=== PATIENT | female | born 1955 | race Caucasian/White ===

== ENCOUNTER 2021-04-09 13:30 | Outpatient (RCR) | payer OTHER, SELFPAY ==
--- NOTE | 2021-03-26 14:19 | OTOPEVAL ---
OCCUPATIONAL THERAPY INITIAL EVALUATION REPORT 03/26/21 Thank you for referring Bree Mccord to [facility].? The patient is scheduled to be seen for therapy? 1-2x/week for 4 weeks. Please review, sign, date and return this plan of care MAC. I agree with and certify that the following plan of care is medically necessary. Referring Physician Date Referring Provider: Yajaira Christopher NP *OT Outpatient Evaluation Start: 03/26/21 12:52 Evaluation Information Problem Diagnosis h/o brain tumor Additional Evaluation Detail Deficits following tumor resection include: Left side weakness, left side proprioception issues, left visual field cut Apr 17, 2020: tumor resection Subjective Information Patient reports that she lives Query Text:As Reported By Patient/ at home with her who Family has been doing all the cooking and laundry. Her granddaughter helps with transportation and household tasks as needed. She states that she showered and dressed herself today, but does note, it wasn't easy . Reports she is unable to type, do word searches, and sometimes runs into furniture on her left side. She states she rarely leaves the home, but when she does someone is always with her to help her down the 4 steps. Prior Level of Function Home Setting Home Type House Environmental Barriers Stairs, 2-4 Living Situation With Spouse Support Available Local Family Support Bathroom Environment Shower, Curtain Bathing Equipment Tub Seat With Back Comments Additional Prior Level of Function Patient states the kitchen is Comments a dangerous place for me , stating that she has burned herself multiple times. She reports she can make herself coffee and something light. She is also now unable to do the laundry because she cannot do the steps down to the basement. Pain Assessment Timing of Pain Assessment Timing of Pain Assessment Assessment Self Report Self Report Pain Level 0 Pain Score
--- NOTE | 2021-03-30 13:42 | PTOPEVAL ---
PHYSICAL THERAPY EVALUATION AND PLAN OF CARE Thank you for referring Bree Mccord to [facility].? The patient is scheduled to be seen for therapy? 2x/week for 4 weeks. Please review, sign, date and return this plan of care MAC. I agree with and certify that the following plan of care is medically necessary. Referring Physician Date Evaluation Diagnosis h/o brain tumor Additional Evaluation Detail Deficits following tumor resection include: Left side weakness, left side proprioception issues, left visual field cut Apr 17, 2020: tumor resection Subjective Information Typically walks with a walker Query Text:As Reported By Patient/ or a cane. Has her sister in Family law with her here today. Emperatriz helped her to walk down the hallway and Emperatriz states that she walks with the furniture. both Bree and Emperatriz remark that right now she is worse with mobility than when she initially came back from the hospital a year ago. Her memory is also worse. She has difficulty walking, climbing stairs. States that she spends alot of time in bed. Pain Score Pain Score 0: Self Report Lower Extremity Range of Motion General Lower Extremity Range of Motion Gross Lower Extremity Range of Motion left shoulder grossly limited Comments due to increased tone; left ankle has about 25% active dorsiflexion, 0 eversion, inversion, and plantar flexion Lower Extremity Muscle Strength Testing Hip Strength Left Hip Flexion Strength 3+ Fair + Hip Extension Strength 2+ Poor + Hip Abduction Strength 2+ Poor + Knee Strength Left Knee Flexion Strength 2 Poor Knee Extension Strength 3+ Fair + Muscle Length Testing Muscle Length Testing Left Hamstring Length -40 Query Text:(90 - 90 Position) Balance Assessment [place] Balance Assessment Sitting to Standing Several Tries w/Hands Unsupported Stance Ability 30 seconds Sitting Unsupported, Feet on Floor Safely- 2 minutes Standing to Sitting Assist, Use Legs on Chair Transfer Ability Supervision, Verbal Cues Unsupported Stance- Eyes Closed 3 seconds Unsupported Stance- Feet Together Supervision to maintain Reaching Forward while Standing Supervision Needed registered occupational therapist Object From Floor
--- NOTE | 2021-04-09 13:45 | PCPTNOTE ---
Patient called & cancelled scheduled appointment this date due to legs being swollen.
--- NOTE | 2021-04-09 14:06 | PCOTNOTE ---
Patient called & cancelled scheduled appointment this date due to swelling in her extremities.
--- NOTE | 2021-04-13 08:23 | PCPTNOTE ---
Patient's called & cancelled scheduled appointment this date due to patient has fallen several time & is going to the ED.
--- NOTE | 2021-04-13 08:48 | PCOTNOTE ---
Patient's called & cancelled scheduled appointment this date due to patient falling several times at home & is going to the ED.
--- NOTE | 2021-04-21 12:08 | PCOTNOTE ---
Patient's appointments were canceled for this week. She had been falling and subsequently admitted to the hospital. Her neurologist advised to hold therapy for this week and to start of steroids. Plan to see patient at her scheduled visits next week unless they call and inform us of any other changes.
--- NOTE | 2021-04-29 08:23 | PCPTNOTE ---
Patient called & cancelled scheduled appointment this date.
--- NOTE | 2021-04-29 10:47 | PCOTNOTE ---
Patient called and cancelled today's re-evaluation due to having another appointment.
--- NOTE | 2021-05-03 16:49 | PCPTNOTE ---
PHYSICAL THERAPY DISCHARGE NOTE Attending Provider: PHYSICIAN NOT ON STAFF Patient:Bree Mccord Date of :1955 Patient has not returned for any further treatments since 04/09/2021, therefore she will be discharged at this time. Patient?s initial visit was on 03/26/2021 and had a total of 3 visits. We were informed by the patient's that she did have a small stroke and home health therapy was recommended for her at this time. Thank you for referring this patient to [facility]. Please review, sign, date and return this discharge summary MAC. I have been updated about the patient's current status and I agree with discharge from the above service at this time. Referring Physician Date
--- NOTE | 2021-05-04 11:40 | PCOTNOTE ---
OCCUPATIONAL THERAPY DISCHARGE NOTIFICATION Patient:Bree Mccord Date of :1955 Patient has not returned for any further treatments since 04/09/2021, therefore she will be discharged at this time. Patient?s initial visit was on 03/26/2021 12:30 and she had a total of 3 visits. We were informed by the patient's that she did have a small stroke and home health therapy was recommended for her at this time. Thank you for referring this patient to [facility]. Please review, sign, date and return this discharge summary MAC. I have been updated about the patient's current status and I agree with discharge from the above service at this time. Referring Physician Date Referring Provider: Yajaira Christopher NP
== END 2021-05-04 15:57 | disposition home or self-care (01) ==
LOC: ANHPT 13:30
PROVIDERS: PCP Family Medicine
DX: C71.8 Malignant neoplasm of overlapping sites of brain (principal)
CPT/HCPCS: 97110; 97116; 97162; 97166; 97530